=== PATIENT | female | born 2000 | race Caucasian/White ===

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

== ENCOUNTER 2022-07-23 04:08 | Emergency (ER) | payer OTHER ==
[~2022-07-23] VITALS: Ht 170 cm; Wt 94.3 kg
[~2022-07-23 04:08] MED LIST changes: +BENZ-36 PO; -BENZ100C23 PO
--- NOTE | 2022-07-23 04:22 | ED Syncope ---
General Chief Complaint: General Problems/Pain Stated Complaint: ALLERGIC RXN Source of Information: Patient, EMS, Family Exam Limitations: No Limitations History of Present Illness Date Seen by Provider: Jul 23, 2022 Time Seen by Provider: 04:11 Initial Comments 21-year-old female with recent diagnosis of hypermobile Willow-Danlos syndrome, PANDAS, and some type of connective tissue disorder (all diagnosed at an integrative medicine clinic) on low-dose naltrexone coming in via EMS from home due to concerns initially for an allergic reaction as well as a syncopal episode. The patient noticed some hives around 11 PM last night. Took 2 Benadryl at that time. But still having some itching but the hives had improved significantly around 3 this morning so she took another Benadryl. She went from sitting to standing, passed out, and EMS was called. Denies ever having any chest pain or palpitations associated with this. Denies any syncopal episodes in the past. States her hives have improved since then and now she feels close to her baseline. Has not added any new medications or any other new substances other than the naltrexone recently. Allergies and Home Medications Allergies Coded Allergies: azithromycin (Verified Allergy, Unknown, 01/27/15) Uncoded Allergies: MSG (Allergy, Intermediate, 12/18/09) Patient Home Medication List Home Medication List Reviewed: Yes Benzonatate (Benzonatate) 100 Mg Capsule, 100 MG PO TID, (Reported) Entered as Reported by: WILY LIRA on 10/21/152212 Cefdinir (Cefdinir) 300 Mg Capsule, 300 MG PO BID Prescribed by: DIANNE RIDER on 10/21/15 2342 Clonidine Hcl (Kapvay) 1 Each Tb.er.dspk, 1 EACH PO BID, (Reported) Entered as Reported by: PUSHPA SMITH on 06/17/132010 Fexofenadine Hcl (Carol) 180 Mg Tablet, 1 TAB PO DAILY, (Reported) Entered as Reported by: PUSHPA SMITH on 06/17/132010 Fluticasone Furoate (Arnuity Ellipta) 100 Mcg Blst.w.dev, 100 MCG IH, (Reported) Entered as Reported by: WILY LIRA on 10/21/152212 Fluvoxamine Maleate (Fluvoxamine Maleate) 50 Mg Tablet, 1 TAB PO BID, (Reported) Entered as Reported by: PUSHPA SMITH on 06/17/132010 Hydroxyzine Pamoate (Vistaril) 25 Mg Capsule, 25 MG PO PRN, (Reported) Entered as Reported by: PUSHPA SMITH on 06/17/132010 Methylphenidate Hcl (Ritalin) 10 Mg Tablet, 10 MG PO DAILY, (Reported) Entered as Reported by: PUSHPA SMITH on 06/17/132010 Methylphenidate Hcl (Ritalin) 5 Mg Tab, 1 TAB PO AT 1500, (Reported) Entered as Reported by: PUSHPA SMITH on 06/17/132010 [ranitidine] , (Reported) Entered as Reported by: WILY LIRA on 10/21/152212 n-Dtzkxhu-Pge Estr/Ethin Estra (Seasonique 0.15-0.03-0.01 Tab) 1 Each Tbds pk.3mo, 1 EACH PO, (Reported) Entered as Reported by: WILY LIRA on 10/21/152212 Review of Systems Constitutional: No fever EENTM: no symptoms reported Respiratory: no symptoms reported Cardiovascular: syncope Gastrointestinal: no symptoms reported Genitourinary: no symptoms reported Musculoskeletal: no symptoms reported Skin: see HPI Psychiatric/Neurological: No Symptoms Reported All Other Systems Reviewed Negative Unless Noted: Yes Past Myisvtt-Eroncv-Hmugdq Hx Patient Social History Tobacco Use?: No Immunizations Up To Date PED Vaccines UTD: Yes Seasonal Allergies Seasonal Allergies: Yes Past Medical History Surgery/Hospitalization HX: wisdom teeth Surgeries: No Concussion, Headaches /Migraines Reproductive Disorders: No Sexually Transmitted Disease: No HIV/AIDS: No Irritable Bowel ADD/ADHD, Depression Adverse Reaction/Blood Tranf: No Family Medical History No Pertinent Family Hx Physical Exam Vital Signs Vital Signs - First Documented Capillary Refill : Height, Weight, BMI Height: 5'7" Weight: 175lbs. oz. [id number]; 27.41 BMI Method:Stated General Appearance: No Apparent Distress, WD/WN HEENT: PERRL/EOMI, Normal ENT Inspection, Pharynx Normal Neck: Full Range of Motion, Normal Inspection, Non Tender, Supple Cardiovascular: Regular Rate, Rhythm, No Edema, Normal Peripheral Pulses Respiratory: Chest Non Tender, Lungs Clear, Normal Breath Sounds, No Accessory Muscle Use, No Respiratory Distress Gastrointestinal: Normal Bowel Sounds, Non Tender, Soft; No Distended, No Guarding Back: Normal Inspection, No CVA Tenderness, No Vertebral Tenderness Extremities: Normal Capillary Refill, Normal Inspection, Normal Range of Motion, Non Tender, No Calf Tenderness, No Pedal Edema Neurologic/Psychiatric: Alert, Oriented x3, No Motor/Sensory Deficits, Normal 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, 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 as 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 Cranial Nerves: Normal Hearing, Normal Speech, PERRL Coordination/Gait: Normal Finger to Nose, Normal Gait Motor/Sensory: No Motor Deficit, No Sensory Deficit, No Pronator Drift Skin: Normal Color, Warm/Dry Lymphatic: No Adenopathy Progress/Results/Core Measures Results/Orders Lab Results Laboratory Tests Test 07/23/22 04:20 Range/Units White Blood Count 12.5 H 4.3-11.0 10^3/uL Red Blood Count 5.02 3.80-5.11 10^6/uL Hemoglobin 15.0 11.5-16.0 g/dL Hematocrit 45 35-52 % Mean Corpuscular Volume 89 80-99 fL Mean Corpuscular Hemoglobin 30 25-34 pg Mean Corpuscular Hemoglobin Concent 34 32-36 g/dL Red Cell Distribution Width 13.6 10.0-14.5 % Platelet Count 435 H 130-400 10^3/uL Mean Platelet Volume 9.5 9.0-12.2 fL Immature Granulocyte % (Auto) 0 % Neutrophils (%) (Auto) 69 42-75 % Lymphocytes (%) (Auto) 25 12-44 % Monocytes (%) (Auto) 4 0-12 % Eosinophils (%) (Auto) 1 0-10 % Basophils (%) (Auto) 0 0-10 % Neutrophils # (Auto) 8.6 H 1.8-7.8 10^3/uL Lymphocytes # (Auto) 3.2 1.0-4.0 10^3/uL Monocytes # (Auto) 0.5 0.0-1.0 10^3/uL Eosinophils # (Auto) 0.2 0.0-0.3 10^3/uL Basophils # (Auto) 0.0 0.0-0.1 10^3/uL Immature Granulocyte # (Auto) 0.0 0.0-0.1 10^3/uL Sodium Level 137 135-145 MMOL/L Potassium Level 3.7 3.6-5.0 MMOL/L Chloride Level 104 98-107 MMOL/L Carbon Dioxide Level 23 21-32 MMOL/L Anion Gap 10 5-14 MMOL/L Blood Urea Nitrogen 14 7-18 MG/DL Creatinine 0.96 0.60-1.30 MG/DL Estimat Glomerular Filtration Rate 86 BUN/Creatinine Ratio 15 Glucose Level 182 H 70-105 MG/DL Calcium Level 8.8 8.5-10.1 MG/DL Corrected Calcium 8.8 8.5-10.1 MG/DL Magnesium Level 1.9 1.6-2.4 MG/DL Total Bilirubin 0.3 0.1-1.0 MG/DL Aspartate Amino Transf (AST/SGOT) 18 5-34 U/L Alanine Aminotransferase (ALT/SGPT) 15 0-55 U/L Alkaline Phosphatase 61 40-136 U/L Total Protein 7.1 6.4-8.2 GM/DL Albumin 4.0 3.2-4.5 GM/DL My Orders Orders - STEFFANIE GRISSOM MD Cbc With Automated Diff (07/23/22 04:18) Comprehensive Metabolic Panel (07/23/22 04:18) Magnesium (07/23/22 04:18) Ed Iv/Invasive Line Start (07/23/22 04:18) Ekg Tracing (07/23/22 04:18) Ns Iv 1000 Ml (Sodium Chloride 0.9%) (07/23/22 04:30) Famotidine Tablet (Pepcid Tablet) (07/23/22 04:30) Dexamethasone Injection (Decadron Injec (07/23/22 04:30) Medications Given in ED Current Medications Medications Dose Ordered Sig/Jaime Route Start Time Stop Time Status Last Admin Dose Admin Dexamethasone Sodium Phosphate 8 mg ONCE ONCE IV 07/23/22 04:30 07/23/22 04:32 DC 07/23/22 04:28 8 MG Famotidine 20 mg ONCE ONCE PO 07/23/22 04:30 07/23/22 04:32 DC 07/23/22 04:28 20 MG Vital Signs/I&O 07/23/22 07/23/22 04:09 04:09 Temp 36.0 Pulse 95 Resp 16 B/P (MAP) 107/75 (86) Pulse Ox 100 O2 Delivery Room Air Room Air Progress Progress Note : Progress Note 21-year-old female presenting for hives as well as a syncopal episode upon going from laying to standing. ABCs were intact and vitals were stable on presentation. Physical exam reassuring and I do not see any evidence of hives right now. No signs of anaphylaxis clinically. Given the hives earlier, we will add Pepcid to her regimen since she already received Benadryl as well as Decadron. She also received some IV fluids given what sounds like she had an orthostatic syncopal episode. EKG with no ischemic changes. Basic labs reassuring including she is not anemic, normal electrolytes, normal kidney function. I do not see any external signs of trauma. She is not having any type of headache, neuro exam is normal. She is [place] head and cervical spine CT rules negative and I do not believe imaging of her head or cervical spine are needed at this time. She is back to her baseline and I believe stable for discharge with outpatient follow-up. She was sent home with strict return precautions. I will recommend stopping her medication. Initial ECG Impression Date: Jul 23, 2022 Initial ECG Impression Time: 04:22 Initial ECG Rate: 87 Initial ECG Rhythm: Normal Sinus Comment Narrow QRS, normal axis, no significant ST changes or T wave abnormalities, QTC of 407, no delta wave Departure Impression Primary Impression: Orthostatic syncope Additional Impression: Urticaria Disposition: 01 HOME, SELF-CARE Condition: Stable Departure-Patient Inst. Decision time for Depature: 05:20 Referrals: MARILYN HERNANDEZ DO (PCP/Family) Primary Care Physician Patient Instructions: Hives (DC), Syncope (Fainting) (DC) Add. Discharge Instructions: The hives are likely due to the medication, and I would recommend either stopping them or discussing with your doctor that prescribed them what you can do regarding the medication. You have had quite a bit of Benadryl already today, if you need medication later, you can take an [id number] Zyrtec once today. The steroid we gave you will be long-acting. We believe you passing out was due to your position change, please follow-up with your regular doctor if this becomes a regular occurrence. Work/School Note: Work Release Form Date Seen in the Emergency Department: Jul 23, 2022 Return to Work: Jul 24, 2022 Restrictions: No Restrictions STEFFANIE GRISSOM MD Jul 23, 2022 04:22
[2022-07-23] MEDS ORDERED: NS IV 1000 ML 1,000 ML IV SCH (04:30)
[2022-07-23] MEDS ORDERED: FAMOTIDINE 20 MG (PEPCID) TABLET PO ONE (04:30)
[2022-07-23 04:33] LABS: BASOPHILS % (AUTO) 0 % (0-10); EOSINOPHILS # (AUTO) 0.2 10^3/uL (0.0-0.3); EOSINOPHILS % (AUTO) 1 % (0-10); HEMATOCRIT 45 % (35-52); LYMPHOCYTES # (AUTO) 3.2 10^3/uL (1.0-4.0); LYMPHOCYTES % (AUTO) 25 % (12-44); MEAN CORPUSCULAR HEMOGLOBIN 30 pg (25-34); MEAN CORPUSCULAR HGB CONC 34 g/dL (32-36); MEAN CORPUSCULAR VOLUME 89 fL (80-99); MEAN PLATELET VOLUME 9.5 fL (9.0-12.2); MONOCYTES # (AUTO) 0.5 10^3/uL (0.0-1.0); MONOCYTES % (AUTO) 4 % (0-12); NEUTROPHILS # (AUTO) 8.6 10^3/uL (1.8-7.8); NEUTROPHILS % (AUTO) 69 % (42-75); PLATELET COUNT 435 10^3/uL (130-400); WHITE BLOOD COUNT 12.5 10^3/uL (4.3-11.0)
[2022-07-23 04:50] LABS: BILIRUBIN,TOTAL 0.3 MG/DL (0.1-1.0); CALCIUM 8.8 MG/DL (8.5-10.1); CREATININE SERUM 0.96 MG/DL (0.60-1.30); MAGNESIUM 1.9 MG/DL (1.6-2.4); POTASSIUM 3.7 MMOL/L (3.6-5.0); TOTAL PROTEIN 7.1 GM/DL (6.4-8.2)
[2022-07-23 05:24] VITALS: BP 123/88
== END 2022-07-23 05:24 | disposition home or self-care (01) ==
LOC: EDUNIT# 04:08 → ER 04:11
DX: R55 Syncope and collapse (principal); L50.9 Urticaria, unspecified; Z28.310 Unvaccinated for COVID-19
CPT/HCPCS: 36415; 80053; 83735; 85025; 93005